=== PATIENT | male | born 1945 | race Hispanic/Latino ===

== ENCOUNTER 2023-12-24 15:56 | Inpatient (IN) | payer OTHER ==
[2023-12-24] MEDS ORDERED: Calcium Carbonate 500 MG ChewTAB PO PRN (16:40)
[2023-12-24] MEDS ORDERED: Ondansetron PF 4 MG/2 ML Vial IVP PRN (16:40)
[2023-12-24] MEDS ORDERED: Senokot S 8.6-50 MG TAB PO PRN (16:40)
[2023-12-24] MEDS ORDERED: Ondansetron ODT 4 MG TAB PO PRN (16:40)
[2023-12-24] MEDS ORDERED: Enoxaparin 100 MG (1 mL) SYRINGE SC SCH (16:45)
[2023-12-24] MEDS: Metoprolol Tartrate 5 MG (5 mL) VIAL IVP SCH (18:14)
[2023-12-24] MEDS: Lactated Ringer's 1,000 ML IV SCH (18:14)
[2023-12-24] MEDS: Cefepime 2 GM in Sodium Chloride 0.9% 100 ML IVPB SCH (18:15)
[2023-12-24] MEDS: Lactated Ringer's 500 ML IV SCH (18:15)
[2023-12-24] MEDS: Aspirin 81 mg Enteric Coated Tablet PO SCH (18:19)
[2023-12-24 18:43] LABS: Hematocrit 44.6 % (42.0-52.0); Hemoglobin 14.3 g/dL (14.0-18.0); Mean Corpuscular HGB CONC 32.1 g/dL (32.0-36.0); Mean Corpuscular Hemoglobin 29.5 pg (27.0-31.0); Platelet Count 80 10x3/uL (130-400); RBC Distribution Width 14.6 % (11.5-14.5); Red Blood Cell (RBC) Count 4.85 mill/uL (4.70-6.10)
[2023-12-24 18:57] LABS: Anion Gap 18 mmol/L (10-20); BUN (Urea Nitrogen) 14 mg/dL (8.4-25.7); Calc. Creatinine Clearance 76 mL/min (70-130); Calcium 9.1 mg/dL (7.8-10.44); Carbon Dioxide 19 mmol/L (23-31); Chloride 104 mmol/L (98-107); Estimated GFR 63; Glucose 100 mg/dL (83-110); Magnesium 2.2 mg/dL (1.6-2.6); Potassium 3.4 mmol/L (3.5-5.1); Sodium 138 mmol/L (136-145)
[2023-12-24 18:59] LABS: INR-International Normal Ratio 1.2; PTT 31.7 sec (22.9-36.1); Prothrombin Time 15.3 sec (12.0-14.7)
[2023-12-24 19:02] LABS: Troponin I 0.038 ng/mL (< 0.028)
[2023-12-24 19:05] LABS: Lactic Acid 4.22 mmol/L (0.5-2.2)
[2023-12-24 19:13] LABS: Band 22 % (5-11); Lymphocytes 2 % (21-51); Monocytes 17 % (0-10); Neutrophil 59 % (42-75); Platelet Adequacy Comment Platelets Decreased; Polychromasia SLIGHT = 2-3 cells HPF (0-2)
[2023-12-24 19:36] LABS: Bacteria/HPF None Seen HPF (None Seen); Bilirubin Negative (Negative); Blood, Urine Trace (Negative); CAUTI Indications for Culture Fever or rigors; Clarity Clear (Clear); Glucose, Urine (Dipstick) Normal (Negative); Ketone, Urine Negative (Negative); Leukocyte Negative Leu/uL (Negative); Nitrite Negative (Negative); Protein, Urine (Dipstick) 20 mg/dL (Neg-Trace); RBC/HPF 0-3 HPF (0-3); Squamous Epithelial 0-3 HPF (0-3); Urobilinogen Normal mg/dL (Less than 2); WBC/HPF 0-3 HPF (0-3)
[2023-12-24 19:38] LABS: Specific Gravity, Urine 1.046 (1.002-1.036)
[2023-12-24 19:39] LABS: Urine Culture Reflex No No
[2023-12-24] MEDS: Enoxaparin 100 MG (1 mL) SYRINGE SC SCH (22:14)
[2023-12-24] MEDS: Potassium Chloride 20 MEQ TAB PO SCH (22:14)
[2023-12-24] MEDS: Famotidine 20 MG TAB PO SCH (22:14)
[2023-12-24] MEDS: Metoprolol Tartrate 25 MG TAB PO SCH (22:14)
[2023-12-24 23:26] LABS: Troponin I 0.026 ng/mL (< 0.028)
[2023-12-25 00:35] LABS: Lactic Acid 2.62 mmol/L (0.5-2.2)
[2023-12-25 00:44] LABS: Troponin I 0.034 ng/mL (< 0.028)
[2023-12-25 02:18] LABS: Hematocrit 40.4 % (42.0-52.0); Hemoglobin 13.3 g/dL (14.0-18.0); Mean Corpuscular HGB CONC 32.9 g/dL (32.0-36.0); Mean Corpuscular Hemoglobin 29.7 pg (27.0-31.0); Mean Corpuscular Volume 90.2 fL (78.0-98.0); Mean Platelet Volume 11.8 fL (7.4-10.4); Platelet Count 102 10x3/uL (130-400); RBC Distribution Width 14.8 % (11.5-14.5); Red Blood Cell (RBC) Count 4.48 mill/uL (4.70-6.10)
[2023-12-25 02:37] LABS: Band 3 % (5-11); Large Platelets 1.7 % (0-5); Lymphocytes 5 % (21-51); Metamyelocyte 1 % (0-0); Monocytes 10 % (0-10); Myelocyte 1 % (0-0); Neutrophil 80 % (42-75); Platelet Adequacy Comment Platelets Decreased; RBC Morphology Within Normal Limits; Smudge Cells 5.2 %
[2023-12-25 03:36] LABS: Vancomycin, Random 13.8 ug/mL (See Comment)
[2023-12-25 03:37] LABS: Anion Gap 17 mmol/L (10-20); BUN (Urea Nitrogen) 14 mg/dL (8.4-25.7); Calc. Creatinine Clearance 70 mL/min (70-130); Calcium 8.7 mg/dL (7.8-10.44); Carbon Dioxide 18 mmol/L (23-31); Chloride 103 mmol/L (98-107); Estimated GFR 58; Glucose 109 mg/dL (83-110); Potassium 3.5 mmol/L (3.5-5.1); Sodium 134 mmol/L (136-145)
[2023-12-25] MEDS ORDERED: Enoxaparin 100 MG (1 mL) SYRINGE SC SCH (06:00)
[2023-12-25 08:09] LABS: HBsAg Index 0.32 S/CO (0-0.99); HIV (1/2) Antibody/Antigen NONREACTIVE (NonReactive); HIV 1/2 INDEX 0.06 S/CO (<1.00); Hep A IgM AB NONREACTIVE (NonReactive); Hep A IgM S/CO 0.31 S/CO (0-0.79); Hep B Core IgM Index 0.08 S/CO (0-0.79); Hep B Surf Ag NONREACTIVE S/CO (NonReactive); Hep C IgG Ab NONREACTIVE S/CO (NonReactive); Hep C Index 0.23 S/CO (0-0.79); Hepatitis B Core IgM Abs NONREACTIVE S/CO (NonReactive)
[2023-12-25] MEDS: Aspirin 81 mg Enteric Coated Tablet PO SCH (08:29)
[2023-12-25] MEDS: Enoxaparin 100 MG (1 mL) SYRINGE SC SCH (13:16)
[2023-12-25] MEDS: Vancomycin (BATCH) 1.5 GM in Premix 1 BAG IVPB SCH (13:45)
[2023-12-25] MEDS: Cefepime 1 GM in Sodium Chloride 0.9% 100 ML IVPB SCH (22:03)
[2023-12-26 04:33] LABS: ALT (SGPT) 25 U/L (8-55); AST (SGOT) 40 U/L (5-34); Albumin 3.3 g/dL (3.4-4.8); Alkaline Phosphatase 83 U/L (40-110); Anion Gap 14 mmol/L (10-20); BUN (Urea Nitrogen) 15 mg/dL (8.4-25.7); Bilirubin, Total 1.1 mg/dL (0.2-1.2); Calc. Creatinine Clearance 72 mL/min (70-130); Calcium 9.3 mg/dL (7.8-10.44); Carbon Dioxide 20 mmol/L (23-31); Chloride 106 mmol/L (98-107); Estimated GFR 60; Globulin 4.5 g/dL (2.4-3.5); Glucose 106 mg/dL (83-110); Potassium 3.9 mmol/L (3.5-5.1); Protein, Total 7.8 g/dL (5.8-8.1); Sodium 136 mmol/L (136-145)
[2023-12-26 05:20] LABS: Hematocrit 42.5 % (42.0-52.0); Hemoglobin 13.6 g/dL (14.0-18.0); Mean Corpuscular Hemoglobin 29.4 pg (27.0-31.0); Mean Platelet Volume 13.4 fL (7.4-10.4); Platelet Count 82 10x3/uL (130-400); RBC Distribution Width 15.2 % (11.5-14.5); Red Blood Cell (RBC) Count 4.62 mill/uL (4.70-6.10)
[2023-12-26 06:33] LABS: Band 2 % (5-11); Lymphocytes 10 % (21-51); Macrocytosis SLIGHT = 6-15 cells HPF (0-5); Monocytes 17 % (0-10); Neutrophil 71 % (42-75); Platelet Adequacy Comment Platelets Decreased; Polychromasia MODERATE = 3-4 cells HPF (0-2); Smudge Cells 5.9 %
[2023-12-26] MEDS ORDERED: Metoprolol Tartrate 50 MG TAB PO SCH (09:00)
[2023-12-26] MEDS ORDERED: Apixaban 5 MG TAB PO SCH (09:00)
[2023-12-26] MEDS: Metoprolol Tartrate 50 MG TAB PO SCH (09:07)
[2023-12-26] MEDS: Apixaban 5 MG TAB PO SCH (09:08)
[2023-12-26] MEDS: cefTRIAXone\\ROCEPHIN 2 GM in Sodium Chloride 0.9% 100 ML IVPB SCH ×2 (09:08→10:52)
[2023-12-26] MEDS: Ipratropium/Albuterol 3 ML NEB NEB SCH (14:02)
[2023-12-26] MEDS: Clindamycin/D5W 600 MG in Premix 1 BAG IVPB SCH (14:24)
[2023-12-27 04:31] LABS: Hematocrit 39.4 % (42.0-52.0); Hemoglobin 12.5 g/dL (14.0-18.0); Mean Corpuscular HGB CONC 31.7 g/dL (32.0-36.0); Mean Corpuscular Hemoglobin 29.3 pg (27.0-31.0); Mean Corpuscular Volume 92.3 fL (78.0-98.0); Platelet Count 64 10x3/uL (130-400); Red Blood Cell (RBC) Count 4.27 mill/uL (4.70-6.10)
[2023-12-27 04:50] LABS: ALT (SGPT) 27 U/L (8-55); AST (SGOT) 39 U/L (5-34); Albumin 2.9 g/dL (3.4-4.8); Alkaline Phosphatase 85 U/L (40-110); Anion Gap 14 mmol/L (10-20); BUN (Urea Nitrogen) 15 mg/dL (8.4-25.7); Bilirubin, Total 1.6 mg/dL (0.2-1.2); Calc. Creatinine Clearance 84 mL/min (70-130); Carbon Dioxide 21 mmol/L (23-31); Chloride 105 mmol/L (98-107); Estimated GFR 72; Globulin 4.6 g/dL (2.4-3.5); Glucose 118 mg/dL (83-110); Potassium 3.8 mmol/L (3.5-5.1); Protein, Total 7.5 g/dL (5.8-8.1); Sodium 136 mmol/L (136-145)
[2023-12-27 05:44] LABS: Band 3 % (5-11); Lymphocytes 5 % (21-51); Macrocytosis SLIGHT = 6-15 cells HPF (0-5); Metamyelocyte 2 % (0-0); Monocytes 22 % (0-10); Myelocyte 1 % (0-0); Neutrophil 61 % (42-75); Nucleated RBC (Manual Ct) 1 % (0); Platelet Adequacy Comment Platelets Decreased; Polychromasia MODERATE = 3-4 cells HPF (0-2); Reactive Lymphocytes 6 % (0-10)
[2023-12-27 06:41] VITALS: BMI 37.3
[2023-12-28] MEDS: traMADol HCl 50 MG TAB PO PRN (05:09)
[2023-12-28 05:58] LABS: Hematocrit 39.7 % (42.0-52.0); Hemoglobin 12.6 g/dL (14.0-18.0); Mean Corpuscular HGB CONC 31.7 g/dL (32.0-36.0); Mean Corpuscular Hemoglobin 29.4 pg (27.0-31.0); Mean Corpuscular Volume 92.8 fL (78.0-98.0); Platelet Count 63 10x3/uL (130-400); RBC Distribution Width 14.9 % (11.5-14.5); Red Blood Cell (RBC) Count 4.28 mill/uL (4.70-6.10)
[2023-12-28 06:03] LABS: ALT (SGPT) 29 U/L (8-55); AST (SGOT) 37 U/L (5-34); Albumin 2.9 g/dL (3.4-4.8); Alkaline Phosphatase 94 U/L (40-110); Anion Gap 14 mmol/L (10-20); BUN (Urea Nitrogen) 16 mg/dL (8.4-25.7); Bilirubin, Total 1.4 mg/dL (0.2-1.2); Calc. Creatinine Clearance 101 mL/min (70-130); Carbon Dioxide 19 mmol/L (23-31); Chloride 106 mmol/L (98-107); Estimated GFR 89; Globulin 4.8 g/dL (2.4-3.5); Glucose 111 mg/dL (83-110); Protein, Total 7.7 g/dL (5.8-8.1); Sodium 135 mmol/L (136-145)
[2023-12-28 06:42] LABS: Anisocytosis SLIGHT = 6-15 cells HPF (0-5); Band 8 % (5-11); Eosinophils 3 % (0-10); Lymphocytes 15 % (21-51); Macrocytosis SLIGHT = 6-15 cells HPF (0-5); Metamyelocyte 2 % (0-0); Monocytes 26 % (0-10); Myelocyte 2 % (0-0); Neutrophil 44 % (42-75); Platelet Adequacy Comment Platelets Decreased; Polychromasia SLIGHT = 2-3 cells HPF (0-2); Smudge Cells 6.9 %
[2023-12-28] MEDS: Acetaminophen 325 MG TAB PO PRN (08:19)
[2023-12-29 07:31] LABS: Anion Gap 13 mmol/L (10-20); BUN (Urea Nitrogen) 17 mg/dL (8.4-25.7); Calc. Creatinine Clearance 82 mL/min (70-130); Calcium 8.9 mg/dL (7.8-10.44); Carbon Dioxide 18 mmol/L (23-31); Chloride 107 mmol/L (98-107); Estimated GFR 70; Glucose 107 mg/dL (83-110); Potassium 3.9 mmol/L (3.5-5.1); Sodium 134 mmol/L (136-145)
[2023-12-29 08:46] LABS: Hemoglobin 12.9 g/dL (14.0-18.0); Mean Corpuscular HGB CONC 32.3 g/dL (32.0-36.0); Mean Corpuscular Hemoglobin 29.5 pg (27.0-31.0); Mean Corpuscular Volume 91.5 fL (78.0-98.0); Platelet Count 53 10x3/uL (130-400); RBC Distribution Width 14.9 % (11.5-14.5); Red Blood Cell (RBC) Count 4.37 mill/uL (4.70-6.10)
[2023-12-29 08:50] LABS: Band 3 % (5-11); Burr Cells SLIGHT = 2-5 cells HPF (0-1); Eosinophils 1 % (0-10); Lymphocytes 14 % (21-51); Monocytes 34 % (0-10); Neutrophil 47 % (42-75); Ovalocytes SLIGHT = 2-5 cells HPF (0-1); Platelet Adequacy Comment Significant Decrease; Polychromasia SLIGHT = 2-3 cells HPF (0-2); Reactive Lymphocytes 1 % (0-10)
[2023-12-30 03:33] LABS: Hematocrit 36.1 % (42.0-52.0); Hemoglobin 11.6 g/dL (14.0-18.0); Mean Corpuscular HGB CONC 32.1 g/dL (32.0-36.0); Mean Corpuscular Hemoglobin 29.2 pg (27.0-31.0); Mean Corpuscular Volume 90.9 fL (78.0-98.0); Mean Platelet Volume 12.1 fL (7.4-10.4); Platelet Count 132 10x3/uL (130-400); Red Blood Cell (RBC) Count 3.97 mill/uL (4.70-6.10)
[2023-12-30 03:46] LABS: Anion Gap 13 mmol/L (10-20); BUN (Urea Nitrogen) 13 mg/dL (8.4-25.7); Calc. Creatinine Clearance 92 mL/min (70-130); Calcium 9.1 mg/dL (7.8-10.44); Carbon Dioxide 22 mmol/L (23-31); Chloride 102 mmol/L (98-107); Estimated GFR 80; Glucose 118 mg/dL (83-110); Potassium 4.3 mmol/L (3.5-5.1); Sodium 133 mmol/L (136-145)
[2023-12-30 04:23] LABS: Band 10 % (5-11); Hypochromia SLIGHT = 6-15 cells HPF (0-5); Large Platelets 3.9 % (0-5); Lymphocytes 13 % (21-51); Monocytes 38 % (0-10); Myelocyte 4 % (0-0); Neutrophil 33 % (42-75); Platelet Adequacy Comment Platelets Normal; Polychromasia SLIGHT = 2-3 cells HPF (0-2); Promyelocytes 1 % (0-0)
[2023-12-30] MEDS: Mineral Oil ENEMA PR SCH (11:08)
[2023-12-30] MEDS: Polyethylene Glycol 3350 17 GM Packet PO SCH (11:09)
[2023-12-30] MEDS: Furosemide 40 MG (4 mL) VIAL SLOW IVP SCH (14:02)
[2023-12-30 16:39] LABS: Bacteria/HPF None Seen HPF (None Seen); Bilirubin Negative (Negative); Blood, Urine Negative (Negative); CAUTI Indications for Culture Dysuria,urgency,freq; Clarity Clear (Clear); Glucose, Urine (Dipstick) Normal (Negative); Ketone, Urine Negative (Negative); Leukocyte 25 Leu/uL (Negative); Nitrite Negative (Negative); Protein, Urine (Dipstick) Negative (Neg-Trace); Specific Gravity, Urine 1.006 (1.002-1.036); Squamous Epithelial None Seen HPF (0-3); Urobilinogen Normal mg/dL (Less than 2); pH, Urine 6.5 (5.0-9.0)
[2023-12-30 16:57] LABS: Urine Culture Reflex No No
[2023-12-30] MEDS: traMADol HCl 50 MG TAB PO PRN (18:15)
[2023-12-31 04:08] LABS: Hematocrit 35.3 % (42.0-52.0); Hemoglobin 11.5 g/dL (14.0-18.0); Mean Corpuscular HGB CONC 32.6 g/dL (32.0-36.0); Mean Corpuscular Hemoglobin 29.4 pg (27.0-31.0); Mean Corpuscular Volume 90.3 fL (78.0-98.0); Mean Platelet Volume 13.1 fL (7.4-10.4); Platelet Count 141 10x3/uL (130-400); Red Blood Cell (RBC) Count 3.91 mill/uL (4.70-6.10)
[2023-12-31 04:14] LABS: Anion Gap 14 mmol/L (10-20); BUN (Urea Nitrogen) 14 mg/dL (8.4-25.7); Calc. Creatinine Clearance 94 mL/min (70-130); Calcium 9.3 mg/dL (7.8-10.44); Carbon Dioxide 22 mmol/L (23-31); Chloride 102 mmol/L (98-107); Estimated GFR 82; Glucose 107 mg/dL (83-110); Potassium 3.8 mmol/L (3.5-5.1); Sodium 134 mmol/L (136-145)
[2023-12-31 04:58] LABS: Anisocytosis SLIGHT = 6-15 cells HPF (0-5); Band 6 % (5-11); Eosinophils 2 % (0-10); Lymphocytes 6 % (21-51); Monocytes 33 % (0-10); Myelocyte 2 % (0-0); Neutrophil 49 % (42-75); Nucleated RBC (Manual Ct) 1 % (0); Platelet Adequacy Comment Platelets Normal; Polychromasia SLIGHT = 2-3 cells HPF (0-2); Reactive Lymphocytes 2 % (0-10); Spherocytes SLIGHT = 1-5 cells HPF (None Seen)
[2023-12-31] MEDS: Polyethylene Glycol 3350 17 GM Packet PO SCH (08:05)
[2023-12-31] MEDS ORDERED: Metoprolol Tartrate 50 MG TAB PO SCH (10:00)
[2023-12-31] MEDS ORDERED: Metoprolol Tartrate 25 MG TAB PO SCH (10:00)
[2023-12-31] MEDS: Metoprolol Tartrate 50 MG TAB PO SCH (10:14)
[2023-12-31] MEDS: Tamsulosin HCl 0.4 MG CAP PO SCH (10:14)
[2023-12-31] MEDS: Colchicine 0.6 MG TAB PO SCH ×2 (15:05→20:29)
[2023-12-31] MEDS: Metoprolol Tartrate 100 MG TAB PO SCH (20:29)
[2023-12-31 22:05] VITALS: BMI 37.3
[2024-01-01 03:54] LABS: Hematocrit 38.2 % (42.0-52.0); Hemoglobin 12.1 g/dL (14.0-18.0); Mean Corpuscular HGB CONC 31.7 g/dL (32.0-36.0); Mean Corpuscular Hemoglobin 28.7 pg (27.0-31.0); Mean Corpuscular Volume 90.7 fL (78.0-98.0); Mean Platelet Volume 12.8 fL (7.4-10.4); Platelet Count 129 10x3/uL (130-400); Red Blood Cell (RBC) Count 4.21 mill/uL (4.70-6.10)
[2024-01-01 04:17] LABS: Anion Gap 18 mmol/L (10-20); BUN (Urea Nitrogen) 19 mg/dL (8.4-25.7); Calc. Creatinine Clearance 79 mL/min (70-130); Carbon Dioxide 22 mmol/L (23-31); Chloride 100 mmol/L (98-107); Estimated GFR 67; Glucose 100 mg/dL (83-110); Potassium 3.8 mmol/L (3.5-5.1); Sodium 136 mmol/L (136-145)
[2024-01-01 04:50] LABS: Band 14 % (5-11); Eosinophils 1 % (0-10); Lymphocytes 18 % (21-51); Metamyelocyte 3 % (0-0); Monocytes 28 % (0-10); Myelocyte 7 % (0-0); Neutrophil 30 % (42-75); Platelet Adequacy Comment Platelets Normal; Polychromasia SLIGHT = 2-3 cells HPF (0-2)
[2024-01-01] MEDS: Tamsulosin HCl 0.4 MG CAP PO SCH (08:28)
[2024-01-02 04:57] LABS: Hematocrit 39.9 % (42.0-52.0); Mean Corpuscular HGB CONC 32.6 g/dL (32.0-36.0); Mean Corpuscular Hemoglobin 29.4 pg (27.0-31.0); Mean Corpuscular Volume 90.3 fL (78.0-98.0); Platelet Count 142 10x3/uL (130-400); RBC Distribution Width 14.7 % (11.5-14.5); Red Blood Cell (RBC) Count 4.42 mill/uL (4.70-6.10)
[2024-01-02 05:01] LABS: Anion Gap 16 mmol/L (10-20); BUN (Urea Nitrogen) 21 mg/dL (8.4-25.7); Calc. Creatinine Clearance 81 mL/min (70-130); Calcium 9.2 mg/dL (7.8-10.44); Carbon Dioxide 22 mmol/L (23-31); Chloride 105 mmol/L (98-107); Estimated GFR 68; Glucose 102 mg/dL (83-110); Potassium 3.6 mmol/L (3.5-5.1); Sodium 139 mmol/L (136-145)
[2024-01-02 05:24] LABS: Band 6 % (5-11); Eosinophils 5 % (0-10); Large Platelets 5.9 % (0-5); Lymphocytes 16 % (21-51); Metamyelocyte 2 % (0-0); Monocytes 24 % (0-10); Myelocyte 1 % (0-0); Neutrophil 46 % (42-75); Platelet Adequacy Comment Platelets Normal; Polychromasia SLIGHT = 2-3 cells HPF (0-2); Reactive Lymphocytes 1 % (0-10)
[2024-01-03] MEDS ORDERED: Furosemide 40 MG (4 mL) VIAL ONE ×2 (07:11→14:17)
[2024-01-03] MEDS ORDERED: Metoprolol Tartrate 100 MG TAB ONE ×2 (08:11→21:27)
[2024-01-03] MEDS ORDERED: cefTRIAXone (ROCEPHIN) 2 GM VIAL ONE (08:11)
[2024-01-03] MEDS ORDERED: Famotidine 20 MG TAB ONE ×2 (08:11→21:27)
[2024-01-03] MEDS ORDERED: Apixaban 5 MG TAB ONE ×2 (08:11→21:27)
[2024-01-03] MEDS ORDERED: Colchicine 0.6 MG TAB ONE (08:11)
[2024-01-03] MEDS ORDERED: Tamsulosin HCl 0.4 MG CAP ONE (08:11)
[2024-01-03] MEDS ORDERED: Aspirin 81 mg Enteric Coated Tablet ONE (08:11)
[2024-01-04] MEDS ORDERED: Furosemide 40 MG (4 mL) VIAL ONE (06:38)
[2024-01-04] MEDS ORDERED: Colchicine 0.6 MG TAB ONE ×3 (08:58→23:12)
[2024-01-04] MEDS ORDERED: Aspirin 81 mg Enteric Coated Tablet ONE (08:58)
[2024-01-04] MEDS ORDERED: Famotidine 20 MG TAB ONE ×2 (08:58→23:12)
[2024-01-04] MEDS ORDERED: Apixaban 5 MG TAB ONE ×2 (08:58→23:12)
[2024-01-04] MEDS ORDERED: cefTRIAXone (ROCEPHIN) 2 GM VIAL ONE (08:58)
[2024-01-04] MEDS ORDERED: Tamsulosin HCl 0.4 MG CAP ONE (08:58)
[2024-01-04] MEDS ORDERED: Metoprolol Tartrate 100 MG TAB ONE ×2 (08:58→23:12)
[2024-01-05] MEDS ORDERED: Furosemide 40 MG (4 mL) VIAL ONE (06:05)
[2024-01-05] MEDS ORDERED: Colchicine 0.6 MG TAB ONE (10:55)
[2024-01-05] MEDS ORDERED: traMADol HCl 50 MG TAB PO PRN (12:41)
[2024-01-05] MEDS: Ipratropium/Albuterol 3 ML NEB ONE ×3 (17:12→18:35)
[2024-01-06] MEDS: Ipratropium/Albuterol 3 ML NEB ONE ×2 (07:57→18:42)
[2024-01-06] MEDS: Colchicine 0.6 MG TAB PO SCH (09:32)
[2024-01-06] MEDS: Furosemide 40 MG TAB PO SCH (09:33)
[2024-01-06] MEDS ORDERED: Ipratropium/Albuterol 3 ML NEB ONE (18:24)
[2024-01-06] MEDS: Nystatin/Triamcinolone Cream 15 GM TUBE TOP SCH (20:34)
[2024-01-07 11:24] VITALS: BP 122/78; TEMP 97.8
== END 2024-01-07 15:20 | DRG 871 ==
LOC: 2SE 15:56 → EEVIPCON 15:56 → 2SE 16:48
PROVIDERS: ADMIT Internal Medicine; ATTEND Internal Medicine
DX: A40.8 Other streptococcal sepsis (principal); I21.4 Non-ST elevation (NSTEMI) myocardial infarction; J15.4 Pneumonia due to other streptococci; J96.01 Acute respiratory failure with hypoxia; I50.31 Acute diastolic (congestive) heart failure; L03.115 Cellulitis of right lower limb; R65.20 Severe sepsis without septic shock; N17.9 Acute kidney failure, unspecified; I27.20 Pulmonary hypertension, unspecified; I11.0 Hypertensive heart disease with heart failure; M10.9 Gout, unspecified; I48.0 Paroxysmal atrial fibrillation; E78.5 Hyperlipidemia, unspecified; D64.9 Anemia, unspecified; D69.6 Thrombocytopenia, unspecified; E66.812 Obesity, class 2; K21.9 Gastro-esophageal reflux disease without esophagitis; M19.071 Primary osteoarthritis, right ankle and foot; Z89.612 Acquired absence of left leg above knee; Z90.49 Acquired absence of other specified parts of digestive tract; Z68.37 Body mass index [BMI] 37.0-37.9, adult; Z71.3 Dietary counseling and surveillance; I73.9 Peripheral vascular disease, unspecified; Z79.82 Long term (current) use of aspirin; Z79.899 Other long term (current) drug therapy; I07.1 Rheumatic tricuspid insufficiency; R33.9 Retention of urine, unspecified; L30.9 Dermatitis, unspecified
CPT/HCPCS: 36415; 36416; 71045; 71275; 80048; 80053; 80074; 80202; 81001; 83605; 83735; 83880; 84484; 85025; 85379; 85610; 85730; 86141; 87040; 87077; 87149; 87186; 87389; 93005; 93306; 94640; 94660; 94760; 96374; 96375; J0692; J0696; J1650; J1940; J3370; J3475; J3490; J7120; J7620; Q9967